=== PATIENT | female | born 1960 | race Caucasian/White ===

== ENCOUNTER → 2016-04-25 | Day surgery (SDC) | payer BC ==
[~2016-04-25] MED LIST: APREPITANT 40 MG CAP ONE; BUPIVACAINE/EPINEPHRINE 0.25% 50 ML VIAL ONE; KETOROLAC TROMETHAMINE 30 MG/ML (IVP) VIAL IV PUSH ONE; LACTATED RINGER'S 1000 ML INJ 1,000 ML ONE; MEPERIDINE HCL 25 MG/ML VIAL ONE; MIDAZOLAM HCL 2 MG/2 ML VIAL ONE; ONDANSETRON HCL 4 MG/2 ML VIAL IV PUSH ONE; PROPOFOL 200 MG/20 ML AMP IV ONE; ceFAZolin 2 GM PREMIX 50 ML ONE
--- NOTE | 2016-04-25 11:45 | TN ---
cc: CARLOS AGEE M.D. DATE OF SURGERY April 25, 2016 PREOPERATIVE DIAGNOSES Umbilical hernia. Periumbilical pain. POSTOPERATIVE DIAGNOSES Umbilical hernia. Periumbilical pain. PROCEDURE Open repair umbilical hernia with mesh. SURGEON Dr. Carlos Aege OUTSIDE SALES ACCOUNT EXECUTIVE Sarah Inman, [facility] General. INDICATIONS A very pleasant 55-year-old woman who had undergone a laparoscopic cholecystectomy on January 14, 2016. To the right of the midline near the umbilicus she felt a lump and had tenderness. An ultrasound was performed which demonstrated findings consistent with fatty tissue protruding through an umbilical hernia defect. Plans were made for operative repair. INTRAOPERATIVE FINDINGS A really small umbilical hernia defect at the base of the umbilicus. The anterior fascia was circumferentially cleared and no other fascial defects were identified. The small defect was enlarged to allow the surgeon's finger into the abdominal cavity and I could not palpate any other abdominal wall defects in the periumbilical location. Primary closure with reinforcement with a small piece of mesh was performed. Estimated blood loss was minimal. DESCRIPTION OF PROCEDURE IN DETAIL The patient was identified as Lary Robles, taken to the operating room, placed in supine position. Sequential compression devices were placed on the bilateral lower extremities. Following induction of adequate general anesthesia, the patient's abdomen was prepped and draped in the usual sterile fashion with Betadine. A time-out procedure was performed. Following completion of time-out procedure to everyone's satisfaction within the room, in a scar from her previous umbilical ring in a little crease adjacent to her proposed incision was made with a marking pen. Time-out procedure was performed. Following completion of the time-out procedure everyone's satisfaction within the room, 0.25% Marcaine with epinephrine was placed and around the umbilicus underneath the proposed incision. The incision was carried out with scalpel and dissection continued posteriorly to the abdominal wall. The base of umbilicus was identified and circumferentially cleared. No hernia defects were visualized and the base of the umbilicus was lifted off the abdominal wall and a the small umbilical hernia defect at the base the umbilicus was identified. Due to the fact that I could not identify any other umbilical hernia or periumbilical defect, the fascial opening was extended on both sides and the surgeon's finger placed into the abdominal cavity. Palpation circumferentially around the umbilicus demonstrated no additional defects. The primary umbilical defect was then approximated with interrupted inverted 0 Prolene sutures. The wound was irrigated copiously with saline. A 3 x 6-cm piece of Atrium ProLite mesh was cut from a 3 x 6-inch piece of mesh, placed in the onlay position, held in place with interrupted 2-0 Vicryl sutures. The sutures were placed at 12, 3, 6 and 9 o'clock positions as well as at the corners of the mesh. This held the mesh taut and broadly covered the defect. The wound was irrigated copiously with saline. The umbilicus was reformed with interrupted undyed 2-0 Vicryl sutures. Skin incisions were approximated with 4-0 Monocryl subcuticular sutures. Dressings were applied with Mastisol and 1/2-inch brown Steri-Strips, gauze and Tegaderm. The patient was given an abdominal binder. The surgical procedure was assisted by my nurse practitioner. Her presence was necessary through the case for appropriate visualization of the surgical wound. My nurse practitioner was assisting me throughout the duration of the procedure. Her skill set was medically necessary to complete the procedure. During the surgical case, the construction equipment technician was working at the back table, providing appropriate instrumentation and the nurse practitioner was directly assisting me. MD MARYELLEN Jose/BRADLEY /10:45 AM /11:32 AM
== END | disposition home or self-care (01) ==
LOC: ESDC 08:24
PROVIDERS: ATTEND Surgery Trauma Surgery
DX: K42.9 Umbilical hernia without obstruction or gangrene (principal)
CPT/HCPCS: 00750; 49585; C1781; J0690; J1885; J2175; J2250; J2405; J3010; J7120; J8501